=== PATIENT | female | born 1950 | race Caucasian/White ===

== ENCOUNTER 2025-02-09 11:53 | Observation (INO) | payer OTHER, MEDICARE ==
--- OUTSIDE RECORDS SUMMARY | 2025-02-09 11:55 | XMS REPORT | Clinical Summary ---
Author Name Unknown Organization [facility] [place] Address [address] [place] [address] Care Team Providers Care Manager Investigations Name Role Phone Physician, No Primary Care Provider [phone] Allergies Active Allergy Reactions Criticality Noted Date Comments Hydrocortisone 12/30/2017 Sulfa (Sulfonamide Antibiotics) 12/16 Medications Eliquis 5 mg tablet Take 1 tablet (5 mg) by mouth every 12 (twelve) hours. 10/09/2022 Active dilTIAZem (CARDIZEM CD) 180 mg 24 hr capsule Take 1 capsule (180 mg) by mouth daily. 11/19/2023 Active ezetimibe (ZETIA) 10 mg tablet Take 1 tablet (10 mg) by mouth daily. 06/12/2023 Active diazePAM (VALIUM) 2 mg tablet Take 1 tablet (2 mg) by mouth daily as needed for anxiety. 10/24/2021 Active lisinopril (PRINIVIL,ZESTR IL) 20 mg tablet Take 1 tablet (20 mg) by mouth every morning. 12/21/2021 Active Active Problems Problem Noted Date Diagnosed Date Tachycardia 11/28/2023 Coronary arteriosclerosis 11/28/2023 Palpitations 11/28/2023 High troponin I level 11/28/2023 Hypertension 12/31/2017 Urinary tract infection 12/31/2017 Hyperkalemia 12/31/2017 Supraventricular tachycardia 11/16/2017 Surgical History Surgery Date Site/Laterality Comments TOTAL HIP ARTHROPLASTY 06/18/2009 - 06/17/2010 Left CHOLECYSTECTOMY 06/18/2016 - 06/17/2017 Medical History Medical History Date Comments Supraventricular tachycardia 11/2017 Breast cancer 2000 Arrhythmia Hypertension Social History Tobacco Use Types Packs/Day Years Used Date Smoking Tobacco: Never Smokeless Tobacco: Never Alcohol Use Standard Drinks/Week Comments Yes 2 (1 standard drink = 0.6 oz pur e alcohol) Social Comments Unknown Sex and Gender Information Value Date Recorded Sex Assigned at Not on file Legal Sex Female 4:10 PM CDT Gender Identity Not on file Sexual Orientation Not on file Obstetrics History Plan of Treatment Health Maintenance Due Date Last Done Comments COVID-19 Vaccine (6 - 2023-2 5 season) 2024 05/24/2021, 12/22/2020, 12/07/2020, Additional history exists Influenza Vaccine (#1) 2025 , 03/18/2021, 03/19/2020, Additional history exists Pneumococcal Vaccine: 50+ Years Completed 01/20/2016, 11/04/2015, 06/18/1999 Insurance AARP-SECONDARY ONLY MEDICARE PART A AND B AARP-SECONDARY ONLY AARP-SECONDARY ONLY MEDICARE PART A AND B Advance Directives * Full Code (Latest Code Status on File) Date Activated Date Inactivated Comments 11/28/2023 12:13 AM 11/28/2023 11:22 AM * Full Code Date Activated Date Inactivated Comments 12/30/2017 10:23 PM 01/01/2018 5:45 PM Care Teams Manager Investigations Relationship Specialty Start Date End Date Physician, No PCP - General 12/30/17
[2025-02-09] MEDS ORDERED: METOPROLOL TARTRATE 5 MG/5 ML INJ IV ONE (12:16)
[2025-02-09 12:29] LABS: Absolute Lymphocytes (CBC) 1.8 K/uL (0.7-4.9); Hematocrit 38.0 % (36.0-45.0); Hemoglobin 12.1 g/dL (12.0-15.0); MCH 23.7 pg (27.0-35.0); MCHC 31.8 g/dL (32.0-36.0); MCV 74.5 fL (80-100); MPV 8.8 fL (7.6-11.3); Nucleated RBC Absolute Count 0.0 (0-0); Nucleated Red Blood Cells % 0.1 % (0-0); RBC Red Blood Cell Count 5.10 M/uL (3.86-4.86); White Blood Count 8.80 thou/uL (4.3-10.9)
[2025-02-09 12:50] LABS: Potassium 3.5 mEq/L (3.5-5.1)
[2025-02-09 13:01] LABS: ALT/SGPT 37.0 U/L (13-56); AST/SGOT 15.0 U/L (15-37); Albumin 3.5 g/dL (3.4-5.0); Albumin/Globulin Ratio 1.3 (1.1-1.8); Alkaline Phosphatase 69.0 U/L (45-117); Anion Gap 11.5 mEq/L (5.0-15.0); BUN Blood Urea Nitrogen 15.0 mg/dL (7-18); Bilirubin Indirect, Calculated 0.3 mg/dL (0.2-0.8); Globulin 2.7 g/dL (2.3-3.5); Glucose Level 104.0 mg/dL (74-106); Magnesium 2.0 mg/dL (1.6-2.4); Troponin High Sensitivity 13.3 pg/mL (<58.9)
--- NOTE | 2025-02-09 13:12 | ER ---
Nurse's Notes [facility] Name: Halley Barajas Age: 74 yrs Sex: Female : 1950 Arrival Date: 02/09/2025 Time: 11:53 Bed 7 Private MD: Diagnosis: Unspecified atrial flutter;Palpitations Presentation: 02/09 12:10 Chief complaint: EMS states: TONED OUT TO CARDIOLOGY OFFICE DUE TO PATIENT BEING cm10 TACHYCARDIC. EMS REPORTS THAT PTS HEART RATE WAS 190 AND RECEIVED ADENOSINE 12MG IVP AND BROUGHT HEART RATE DOWN TO 150S. PT DENIES ANY CHEST PAIN. PT REPORTS THAT SHE HAS HAD INTERMITTENT SHORTNESS OF BREATH. Coronavirus screen: Client denies travel out of the [place] in the last 14 days. Ebola Screen: Patient denies travel to an Ebola-affected area in the 21 days before illness onset. Initial Sepsis Screen: Does the patient meet any 2 criteria? No. Patient's initial sepsis screen is negative. Does the patient have a suspected source of infection? No. Patient's initial sepsis screen is negative. Risk Assessment: Do you want to hurt yourself or someone else? Patient reports no desire to harm self or others. Onset of symptoms was February 09, 2025. Care prior to arrival: Medication(s) given: Adenosine, 12 mg, x 1, Normal saline infusion, 300Ml IV initiated. 20 GA, 22 GA, in the left in the right antecubital area, forearm. 12:10 Method Of Arrival: EMS: [facility] cm10 12:10 Acuity: ROBE 2 cm10 Triage Assessment: 12:15 General: Appears in no apparent distress. comfortable, Behavior is calm, cooperative. cm10 Pain: Denies pain. Neuro: No deficits noted. Level of Consciousness is awake, alert, obeys commands, Oriented to person, place, time, situation, Appropriate for age. Cardiovascular: Patient's skin is warm and dry. Rhythm is atrial flutter. Respiratory: No deficits noted. Airway is patent Respiratory effort is even, unlabored, Respiratory pattern is regular, symmetrical. Musculoskeletal: Circulation, motion, and sensation intact. Range of motion: intact in all extremities. Historical: - Allergies: 12:12 Sulfa (Sulfonamide Antibiotics); cm10 12:12 Steroids; cm10 - Home Meds: 12:12 Lisinopril Oral [Active]; cm10 - PMHx: 12:12 Atrial fibrillation; cm10 - Immunization history:: Adult Immunizations up to date. - Infectious Disease History:: Denies. - Social history:: Smoking status: Patient denies any tobacco usage or history of. Screenin:20 [facility] ED Fall Risk Assessment (Adult) History of falling in the last 3 months, cm10 including since admission No falls in past 3 months (0 pts) Confusion or Disorientation No (0 pts) Intoxicated or Sedated No (0 pts) Impaired Gait No (0 pts) Mobility Assist Device Used No (0 pt) Altered Elimination No (0 pt) Score/Fall Risk Level 0 - 2 = Low Risk Oriented to surroundings, Maintained a safe environment, Hourly rounding (assess needs \T\ fall precautionary measures) done. Abuse screen: Denies threats or abuse. Denies injuries from another. Nutritional screening: No deficits noted. Tuberculosis screening: No symptoms or risk factors identified. Assessment: 13:58 Reassessment: Patient appears in no apparent distress at this time. Patient and/or cm10 family updated on plan of care and expected duration. Pain level reassessed. Patient is alert, oriented x 3, equal unlabored respirations, skin warm/dry/pink. 15:45 Reassessment: Patient appears in no apparent distress at this time. Patient and/or cm10 family updated on plan of care and expected duration. Pain level reassessed. Patient is alert, oriented x 3, equal unlabored respirations, skin warm/dry/pink. Vital Signs: 12:10 BP 132 / 88; Pulse 154; Resp 18; Temp 98.5(O); Pulse Ox 99% on R/A; Weight 68.49 kg; cm10 Height 5 ft. 4 in. ; Pain 0/10; 12:28 Pulse 91; cm10 12:45 BP 129 / 76; Pulse 109; Resp 15; Pulse Ox 96% on R/A; cm10 13:00 BP 147 / 103; Pulse 107; Resp 15; Pulse Ox 97% ; cm10 14:02 BP 132 / 87; Pulse 86; Resp 15; Pulse Ox 100% on R/A; cm10 15:00 BP 134 / 77; Pulse 104; Resp 14; Pulse Ox 99% on R/A; jb4 15:30 BP 124 / 76; Pulse 65; Resp 15; Pulse Ox 99% ; jb4 16:00 BP 120 / 66; Pulse 65; Resp 15; Pulse Ox 98% on R/A; jb4 12:10 Body Mass Index 25.92 (68.49 kg, 162.56 cm) cm10 12:10 Pain Scale: Adult cm10 ED Course: 11:59 Patient arrived in ED. cm10 12:01 Otf Garcia DO is Attending Physician. ms3 12:10 Yeimi Bhatia, MANNY is Primary Nurse. cm10 12:12 Triage completed. cm10 12:13 Arm band placed on right wrist. Patient placed in an exam room, on a stretcher, on cm10 cryptologist, on pulse oximetry. 12:14 Maintain EMS IV. Dressing intact. Good blood return noted. Site clean \T\ dry. Gauge \T\ cm 10 site: 22g right forearm. Flushed with 10 mL NS. 12:14 EKG done, by ED staff, reviewed by Otf Garcia DO. Maintain EMS IV. Dressing intact. cm10 Good blood return noted. Site clean \T\ dry. Gauge \T\ site: 20g left ac. Flushed with 10 mL NS. 12:20 Patient has correct armband on for positive identification. Bed in low position. Call cm10 light in reach. Side rails up X2. Client placed on continuous cardiac and pulse oximetry monitoring. NIBP monitoring applied. bass viol repairer on. 12:45 XRAY Chest (1 view) In Process Unspecified. EDMS 13:11 Silver Martínez MD is Hospitalizing Provider. ms3 16:20 Provided Education on: Need for admit. cm10 16:20 No provider procedures requiring assistance completed. IV discontinued, intact, cm10 bleeding controlled, No redness/swelling at site. Pressure dressing applied. Administered Medications: 12:19 Drug: Metoprolol IVP 5 mg IVP every 5 minutes; Hold for SBP < 100 or HR < 60. x3 Route: cm10 IVP; Site: left antecubital; 12:30 Follow up: Response: No adverse reaction; Cardiac rhythm changed cm10 13:25 Drug: Sotalol PO 80 mg PO once Route: PO; cm10 14:09 Follow up: Response: No adverse reaction cm10 14:08 Drug: Eliquis PO 5 mg PO once Route: PO; cm10 16:21 Follow up: Response: No adverse reaction cm10 Medication: 16:20 VIS not applicable for this client. cm10 Outcome: 13:12 Decision to Hospitalize by Provider. ms3 16:20 Admitted to Med/surg accompanied by nurse, via wheelchair, room 206, cm10 16:20 Condition: stable 16:20 Instructed on the need for admit, 16:21 Patient left the ED. cm10 Signatures: Dispatcher [employer] EDCharlie Barreto, RN RN jb4 Otf Garcia DO DO ms3 Yeimi Bhatia, RN RN cm10
--- NOTE | 2025-02-09 13:12 | EDPHYS ---
Physician Documentation [facility] Name: Halley Barajas Age: 74 yrs Sex: Female : 1950 Arrival Date: 02/09/2025 Time: 11:53 Bed 7 Private MD: ED Physician Otf Garcia HPI: 02/09 12:32 This 74 yrs old Female presents to ER via EMS with complaints of Fast heart rate. ms3 12:32 74-year-old female with past medical history of atrial fibrillation presents to the [facility] emergency department from Dr. Valero's office for tachycardia. Patient given 12 mg of adenosine in his office that revealed atrial fibrillation/flutter. On arrival patient states she is having palpitations. She denies chest pain or shortness of breath. Historical: - Allergies: 12:12 Sulfa (Sulfonamide Antibiotics); cm10 12:12 Steroids; cm10 - Home Meds: 12:12 Lisinopril Oral [Active]; cm10 - PMHx: 12:12 Atrial fibrillation; cm10 - Immunization history:: Adult Immunizations up to date. - Infectious Disease History:: Denies. - Social history:: Smoking status: Patient denies any tobacco usage or history of. ROS: 12:32 Constitutional: Negative for fever, and chills. Respiratory: Negative for shortness of ms3 breath, cough, wheezing, and pleuritic chest pain, Abdomen/GI: Negative for abdominal pain, nausea, vomiting, diarrhea, and constipation, 12:32 MS/Extremity: Negative for injury and deformity, Skin: Negative for injury, rash, and discoloration, 12:32 Cardiovascular: Positive for palpitations, Exam: 12:05 ECG was reviewed by the Attending Physician. ms3 12:32 Constitutional: This is a well developed, well nourished patient who is awake, alert, ms3 and in no acute distress. Respiratory: Lungs have equal breath sounds bilaterally, clear to auscultation and percussion. No rales, rhonchi or wheezes noted. No increased work of breathing, no retractions or nasal flaring. Abdomen/GI: Soft, non-tender, with normal bowel sounds. No distension or tympany. No guarding or rebound. No evidence of tenderness throughout. Skin: Warm, dry with normal turgor. Normal color with no rashes, no lesions, and no evidence of cellulitis. MS/ Extremity: Pulses equal, no cyanosis. Neurovascular intact. Full, normal range of motion. 12:32 Cardiovascular: Rate: tachycardic, Rhythm: regular, Pulses: no pulse deficits are appreciated, Heart sounds: normal, normal S1and S2, 12:35 ECG was reviewed by the Attending Physician. ms3 Vital Signs: 12:10 BP 132 / 88; Pulse 154; Resp 18; Temp 98.5(O); Pulse Ox 99% on R/A; Weight 68.49 kg; cm10 Height 5 ft. 4 in. ; Pain 0/10; 12:28 Pulse 91; cm10 12:45 BP 129 / 76; Pulse 109; Resp 15; Pulse Ox 96% on R/A; cm10 13:00 BP 147 / 103; Pulse 107; Resp 15; Pulse Ox 97% ; cm10 14:02 BP 132 / 87; Pulse 86; Resp 15; Pulse Ox 100% on R/A; cm10 15:00 BP 134 / 77; Pulse 104; Resp 14; Pulse Ox 99% on R/A; jb4 15:30 BP 124 / 76; Pulse 65; Resp 15; Pulse Ox 99% ; jb4 16:00 BP 120 / 66; Pulse 65; Resp 15; Pulse Ox 98% on R/A; jb4 12:10 Body Mass Index 25.92 (68.49 kg, 162.56 cm) cm10 12:10 Pain Scale: Adult cm10 MDM: 12:01 Medical Screening Exam initiated ms3 12:05 Consideration of Admission/Observation Patient was admitted/placed on observation. ms3 12:32 Differential diagnosis: arrythmia, Electrolyte abnormality. ms3 13:12 Data reviewed: vital signs, nurses notes, lab test result(s), EKG, radiologic studies, ms3 and as a result, I will. Management of patient was discussed with the following: Hospitalist: . Facing Baster: Dr Valero- Would like Sotalol 80 mg PO BID and Eliquis 5 mg PO BID. I considered the following discharge prescriptions or medication management in the emergency department Medications were administered in the Emergency Department. See MAR. Independent interpretation of the following test(s) in the Emergency Department EKG: See my EKG interpretation above X-Ray: My interpretation is Chest x-ray image reviewed by me does not reveal pleural effusion, pulmonary edema.. Counseling: I had a detailed discussion with the patient and/or guardian regarding the historical points, exam findings, and any diagnostic results supporting the discharge/admit diagnosis, lab results, radiology results, the need for further work-up and treatment in the hospital. ED course: Discussed necessity for admission with the patient and her . They understand and agree with plan. All questions were answered.. 02/09 12:02 Order name: Basic Metabolic Panel [facility] 02/09 12:02 Order name: CBC with Diff; Complete Time: 13:03 ms3 02/09 12:02 Order name: LFT's ms3 02/09 12:02 Order name: Magnesium ms3 02/09 12:02 Order name: NT PRO-BNP ms3 02/09 12:02 Order name: Troponin HS ms 02/09 14:29 Order name: Lipid Profile [facility] 02/09 14:29 Order name: Phosphorus [facility] 02/09 14:29 Order name: T4 Free [facility] 02/09 14:29 Order name: Thyroid Stimulating Hormone [facility] 02/09 14:29 Order name: Basic Metabolic Panel [facility] 02/09 14:29 Order name: Basic Metabolic Panel [facility] 02/09 14:29 Order name: CBC with Automated Diff [facility] 02/09 14:29 Order name: CBC with Automated Diff [facility] 02/09 14:29 Order name: Troponin High Sensitivity [facility] 02/09 14:29 Order name: Troponin High Sensitivity [facility] 02/09 14:29 Order name: Troponin High Sensitivity [facility] 02/09 12:02 Order name: XRAY Chest (1 view) [facility] 02/09 14:42 Order name: Echo with Doppler [facility] 02/09 14:20 Order name: CONS Physician Consult [facility] 02/09 12:02 Order name: Cardiac monitoring; Complete Time: 12:14 ms3 02/09 12:02 Order name: EKG - Nurse/Tech; Complete Time: 12:14 ms3 02/09 12:02 Order name: IV Saline Lock; Complete Time: 12:14 ms3 02/09 12:02 Order name: Labs collected and sent; Complete Time: 12:14 ms3 02/09 12:02 Order name: O2 Per Protocol; Complete Time: 12:14 ms3 02/09 12:02 Order name: O2 Sat Monitoring; Complete Time: 12:14 ms3 EC:05 Rate is 147 beats/min. Rhythm is irregularly irregular. Left axis deviation noted. QRS ms3 interval is normal. Clinical impression: Atrial Fibrillation and with RVR. Interpreted by me. Reviewed by me. 12:35 Rate is 95 beats/min. Rhythm is irregularly irregular. Left axis deviation noted. ms3 Clinical impression: Atrial Flutter. Interpreted by me. Reviewed by me. Administered Medications: 12:19 Drug: Metoprolol IVP 5 mg IVP every 5 minutes; Hold for SBP < 100 or HR < 60. x3 Route: cm10 IVP; Site: left antecubital; 12:30 Follow up: Response: No adverse reaction; Cardiac rhythm changed cm10 13:25 Drug: Sotalol PO 80 mg PO once Route: PO; cm10 14:09 Follow up: Response: No adverse reaction cm10 14:08 Drug: Eliquis PO 5 mg PO once Route: PO; cm10 16:21 Follow up: Response: No adverse reaction cm10 Disposition Summary: 02/09/25 13:12 Hospitalization Ordered Notes: Hospitalization Status: Observation ms3 Provider: Silver Martínez ms3 Location: Telemetry/MedSurg (observation) ms3 Condition: Stable ms3 Problem: new ms3 Symptoms: are unchanged ms3 Bed/Room Type: Standard ms3 Room Assignment: 206(02/09/25 15:33) bd Diagnosis - Unspecified atrial flutter ms3 - Palpitations ms3 Forms: - Medication Reconciliation Form ms3 - SBAR form ms3 - Leadership Thank You Letter ms3 Critical care time excluding procedures: 13:15 Critical care time: Bedside Care: 30 minutes, Consultation: 5 minutes, Family ms3 Intervention: 5 minutes. Total time: 40 minutes Signatures: Dispatcher [employer] EDMS Marilu Bolden Marcus, DO DO ms3 Yeimi Bhatia RN RN cm10 Corrections: (The following items were deleted from the chart) 12:02 12:02 BASIC METABOLIC PANEL+C.LAB.BRZ ordered. EDMS EDMS 12:02 12:02 CBC+H.LAB.BRZ ordered. EDMS EDMS 12:02 12:02 HEPATIC FUNCTION+C.LAB.BRZ ordered. EDMS EDMS 12:02 12:02 MAGNESIUM+C.LAB.BRZ ordered. EDMS EDMS 12:02 12:02 PROBNP+C.LAB.BRZ ordered. EDMS EDMS 12:02 12:02 Troponin High Sensitivity+C.LAB.BRZ ordered. EDMS EDMS 12:03 12:02 Chest Single View+RAD.RAD.BRZ ordered. EDMS EDMS 12:34 12:32 Constitutional: This is a well developed, well nourished patient who is awake, ms3 alert, and in no acute distress. Respiratory: Lungs have equal breath sounds bilaterally, clear to auscultation and percussion. No rales, rhonchi or wheezes noted. No increased work of breathing, no retractions or nasal flaring. Abdomen/GI: Soft, non-tender, with normal bowel sounds. No distension or tympany. No guarding or rebound. No evidence of tenderness throughout. ms3 14:03 13:12 Management of patient was discussed with the following: Hospitalist: . ms3 Facing Baster: Dr Valero. ms3 15:33 13:12 ms3 bd
[2025-02-09] MEDS ORDERED: SOTALOL HCL 80 MG TAB ONE (13:18)
[2025-02-09] MEDS ORDERED: APIXABAN 5 MG TABLET ONE (13:18)
--- NOTE | 2025-02-09 13:37 | RAD REPORT ---
EXAMINATION: ONE VIEW CHEST XR CLINICAL INDICATION: Female, 74 years old.,tachycardia TECHNIQUE: Frontal chest projection is submitted. Examination is limited by patient positioning and t echnique. COMPARISON: No prior exam. FINDINGS: The lungs are well inflated. Patchy ovoid opacity at the right lung base. Questionable hazy opacifica tion in the retrocardiac space although superimposition of soft tissues somewhat limits evaluation. No pneumothorax or sizable effusion. The heart is normal in size. Mediastinal contours are unremarkab le. Surgical clips in the left axilla. IMPRESSION: Patchy ovoid opacity in the right lung base and questionable hazy opacification of the retrocardiac s pace. Findings are concerning for acute pneumonitis, possibly multifocal.
[2025-02-09] MEDS ORDERED: HYDROCODONE/APAP 5/325 MG TAB PO PRN (14:17)
[2025-02-09] MEDS ORDERED: ACETAMINOPHEN 325 MG TABLET PO PRN (14:17)
[2025-02-09] MEDS ORDERED: ONDANSETRON 4 MG/2 ML VIAL IV PRN (14:26)
--- NOTE | 2025-02-09 14:41 | P.HP ---
Certification for Inpatient Patient admitted to: Observation With expected LOS: <2 Midnights Patient will require the following post-hospital care: None Practitioner: I am a practitioner with admitting privileges, knowledge of patient current condition, hospital course, and medical plan of care. Services: Services provided to patient in accordance with Admission requirements found in Title 42 Section 412.3 of the Code of Federal Regulations <Ashley Peoples - Last Filed: 02/09/25 21:09> Patient History Date of Service: 02/09/25 Reason for admission: Palpitations History of Present Illness: Patient is a 74-year-old female with a past medical history significant for atrial fibrillation, anxiety disorder, hypertension, hyperlipidemia who presents with complaint of palpitation that has been ongoing for the past 1 week. Patient followed up with his semiconductor manufacturing technician today and was instructed to go to the ER for further management. Patient reported associated signs and symptoms of shortness of breath with exertion. Patient denies any other signs and symptoms. Symptoms are aggravated or relieved by nothing. Patient decided to present to the hospital as directed by her semiconductor manufacturing technician. - Past Medical/Surgical History -: Afib -: HTN -: Anxiety Disorder -: Cardiac ablation - Family History Family History: Reviewed- Non-Contributory - Social History Smoking Status: Never smoker Smoking therapy provided: No Patient receptive to therapy: No Alcohol use: No CD- Drugs: No Caffeine use: No Place of Residence: Home <Ashley Peoples - Last Filed: 02/09/25 21:09> Date of Service: 02/09/25 <Silver Martínez - Last Filed: 02/10/25 07:36> Allergies Sulfa (Sulfonamide Antibiotics) Allergy (Verified 02/09/25 17:05) Itching steriods Adverse Reaction (Uncoded 02/09/25 17:05) Shortness of breath Home Medications: Aspirin [Aspirin EC 81 MG] 81 mg PO DAILY 02/09/25 Ergocalciferol (Vitamin D2) [Vitamin D 50,000 Unit Cap] 1 tab PO Q7H 02/09/25 Evolocumab [Repatha Sureclick] 1 SQ SEECOM 02/09/25 Ezetimibe 10 mg PO DAILY 02/09/25 Lisinopril [Zestril] 20 mg PO DAILY 02/09/25 Nitrofurantoin Macrocrystal [Nitrofurantoin] 100 mg PO BID 02/09/25 diazePAM [Diazepam] 2 mg PO BID PRN 02/09/25 Review of Systems General: Unremarkable Eyes: Unremarkable ENT: Unremarkable Respiratory: SOB with Excertion Cardiovascular: Palpitations Gastrointestinal: Unremarkable Genitourinary: Unremarkable Musculoskeletal: Unremarkable Integumentary: Unremarkable Neurological: Unremarkable Lymphatics: Unremarkable <Ashley Peoples - Last Filed: 02/09/25 21:09> Physical Examination - Physical Exam General: Alert, In no apparent distress, Oriented x3, Cooperative HEENT: Atraumatic, PERRLA, Mucous membr. moist/pink, EOMI, Sclerae nonicteric Neck: Supple, 2+ carotid pulse no bruit, No LAD, Without JVD or thyroid abnormality Respiratory: Clear to auscultation bilaterally, Normal air movement Cardiovascular: No edema, Normal S1 S2, Irregular heart rate/rhythm Capillary refill: <2 Seconds Gastrointestinal: Normal bowel sounds, No tenderness Musculoskeletal: No clubbing, No tenderness Integumentary: No rashes, No breakdown Neurological: Normal speech, Normal tone, Normal affect Lymphatics: No axilla or inguinal lymphadenopathy - Studies Laboratory Data (last 24 hrs) 02/09/25 02/09/25 12:18 12:18 WBC 8.80 Hgb 12.1 Hct 38.0 Plt Count 255 Sodium 140 Potassium 3.5 BUN 15 Creatinine 0.83 Glucose 104 Magnesium 2.0 Total Bilirubin 0.5 AST 15 ALT 37 Alkaline Phosphatase 69 <Ashley Peoples - Last Filed: 02/09/25 21:09> - Studies Laboratory Data (last 24 hrs) 02/09/25 02/09/25 12:18 12:18 WBC 8.80 Hgb 12.1 Hct 38.0 Plt Count 255 Sodium 140 Potassium 3.5 BUN 15 Creatinine 0.83 Glucose 104 Magnesium 2.0 Total Bilirubin 0.5 AST 15 ALT 37 Alkaline Phosphatase 69 <Silver Martínez - Last Filed: 02/10/25 07:36> Assessment and Plan - Plan Atrial flutter. History of atrial fibrillation. Palpitations --Cardiology consulted. Recommendations appreciated --Cardiology recommended placing patient on sotalol and Eliquis. --Echocardiogram pending to assess cardiac structures of concerns. --Telemetry to monitor for any significant arrhythmia. Anxiety disorder --Continue home medication. Hypertension --Stable. --Continue home medications Hyperlipidemia --Continue home medication. CKD 2. --Stable. --Will continue to monitor renal functions. DVT prophylaxis with Eliquis. Discharge Plan: Home Plan to discharge in: 48 Hours - Advance Directives Does patient have a Living Will: No Does patient have a Durable POA for Healthcare: No - Code Status/Comfort Care Code Status Assessed: Yes Physician Review: Patient Assessed, Agree with Above Assessment and Plan Critical Care: No <Ashley Peoples - Last Filed: 02/09/25 21:09> Date of Service: 02/09/25 Chart has been reviewed. Events of the last 24 hours have been noted. Case discussed with GUMARO. I performed a substantial part of the MDM during this patient's care today. I personally made or approved the documented management plan and acknowledge its risk of complications. I agree with the findings and documentation provided in the GUMARO's notes Continue with sotalol and continue with anticoagulation. Plan to discharge after the third dose. Continue monitoring on telemetry over the next 24 to 48 hours. <Silver Martínez - Last Filed: 02/10/25 07:36>
[2025-02-09 16:48] VITALS: BMI 25.9
[2025-02-09 17:59] LABS: NT PRO-BNP 518.0 pg/mL (<450)
[2025-02-09] MEDS: SOTALOL HCL 80 MG TAB PO SCH (18:30)
[2025-02-09 20:02] VITALS: O2SAT 98
[2025-02-09] MEDS ORDERED: DIAZEPAM 2 MG TABLET PO PRN (20:58)
[2025-02-09] MEDS: NITROFURAN MACRO 50 MG CAP PO SCH (21:00)
[2025-02-09] MEDS: APIXABAN 5 MG TABLET PO SCH (21:15)
[2025-02-10 05:03] LABS: Absolute Lymphocytes (CBC) 2.2 K/uL (0.7-4.9); Hematocrit 33.5 % (36.0-45.0); Hemoglobin 10.8 g/dL (12.0-15.0); MCH 24.0 pg (27.0-35.0); MCHC 32.1 g/dL (32.0-36.0); MCV 74.8 fL (80-100); MPV 9.3 fL (7.6-11.3); Nucleated RBC Absolute Count 0.0 (0-0); Nucleated Red Blood Cells % 0.0 % (0-0); RBC Red Blood Cell Count 4.48 M/uL (3.86-4.86); White Blood Count 7.90 thou/uL (4.3-10.9)
[2025-02-10 05:16] LABS: Anion Gap 11.7 mEq/L (5.0-15.0); BUN Blood Urea Nitrogen 14.0 mg/dL (7-18); Glucose Level 101.0 mg/dL (74-106); HDL Cholesterol 41.0 mg/dL (40-60); LDL Cholesterol, Calculated 24.0 mg/dL (<130); LDL Cholesterol,Calc NonReport 24.0; Potassium 3.7 mEq/L (3.5-5.1); Thyroid Stimulating Hormone 1.22 uIU/mL (0.358-3.740); Troponin High Sensitivity 23.0 pg/mL (<58.9)
[2025-02-10] MEDS: POTASSIUM CL SA 10 MEQ TAB PO ONE (06:22)
[2025-02-10] MEDS: NITROFURAN MACRO 100 MG CAP PO SCH (08:10)
[2025-02-10] MEDS: EZETIMIBE 10 MG TAB PO SCH (08:10)
[2025-02-10] MEDS ORDERED: ASPIRIN EC 81 MG TAB PO SCH (09:00)
[2025-02-10 10:43] VITALS: BP 133/73; TEMP 98.2
--- NOTE | 2025-02-10 12:09 | P.CNS ---
Date of Consult: 02/10/25 Chief Complaint: Palpitations History of Present Illness: Patient with PMH of AF s/p watchman, HLD, presented with AF RVR, started on Sotalol during hospital stay and chemically converted to sinus rhythm, denies any other cardiac symptoms. Allergies Sulfa (Sulfonamide Antibiotics) Allergy (Verified 02/09/25 17:05) Itching steriods Adverse Reaction (Uncoded 02/09/25 17:05) Shortness of breath Home medications list reviewed: Yes Home Medications: Aspirin [Aspirin EC 81 MG] 81 mg PO DAILY 02/09/25 Ergocalciferol (Vitamin D2) [Vitamin D 50,000 Unit Cap] 1 tab PO Q7H 02/09/25 Evolocumab [Repatha Sureclick] 1 SQ SEECOM 02/09/25 Ezetimibe 10 mg PO DAILY 02/09/25 Lisinopril [Zestril] 20 mg PO DAILY 02/09/25 diazePAM [Diazepam] 2 mg PO BID PRN 02/09/25 Apixaban [Eliquis] 5 mg PO BID 14 Days #28 tab 02/10/25 Sotalol HCl [Betapace*] 80 mg PO BID 6AM 6PM #60 tab 02/10/25 - Past Medical/Surgical History Diabetic: No -: Afib -: HTN -: Anxiety Disorder -: Cardiac ablation -: L breast CA -: cholecystectomy - Social History Alcohol use: No CD- Drugs: No Caffeine use: No Place of Residence: Home Review of Systems 10-point ROS is otherwise unremarkable Physical Examination Temp Pulse Resp BP Pulse Ox 98.2 F 62 17 133/73 100 02/10/25 08:00 02/10/25 08:00 02/10/25 08:00 02/10/25 08:00 02/10/25 08:00 General: Alert, In no apparent distress HEENT: Atraumatic, PERRLA, Mucous membr. moist/pink, EOMI, Sclerae nonicteric Neck: Supple, 2+ carotid pulse no bruit, No LAD, Without JVD or thyroid abnormality Respiratory: Clear to auscultation bilaterally, Normal air movement Cardiovascular: Regular rate/rhythm, Normal S1 S2 Gastrointestinal: Normal bowel sounds, No tenderness Musculoskeletal: No tenderness Integumentary: No rashes Neurological: Normal gait, Normal speech, Normal tone, Normal affect Lymphatics: No axilla or inguinal lymphadenopathy Laboratory Data (last 24 hrs) 02/09/25 02/09/25 12:18 12:18 WBC 8.80 Hgb 12.1 Hct 38.0 Plt Count 255 Sodium 140 Potassium 3.5 BUN 15 Creatinine 0.83 Glucose 104 Magnesium 2.0 Total Bilirubin 0.5 AST 15 ALT 37 Alkaline Phosphatase 69 - Problems (1) Atrial fibrillation Current Visit: Yes Status: Acute Plan: converted to sinus rhythm after starting sotalol, repeated ekg show normal QTc continue Sotalol 80 mg po BID Continue Eliquis 5 mg po BID for 14 days then switch to ASA 81 mg daily (patient with watchman) continue to follow up with cardiology
--- NOTE | 2025-02-10 15:40 | P.DS ---
Admission Date: 02/09/25 Discharge Date: 02/10/25 Disposition: ROUTINE DISCHARGE Discharge Condition: GOOD Reason for Admission: Palpitations Brief History of Present Illness: Patient is a 74-year-old female with a past medical history significant for atrial fibrillation, anxiety disorder, hypertension, hyperlipidemia who presents with complaint of palpitation that has been ongoing for the past 1 week. Patient followed up with his bronc breaker today and was instructed to go to the ER for further management. Patient reported associated signs and symptoms of shortness of breath with exertion. Patient denies any other signs and symptoms. Symptoms are aggravated or relieved by nothing. Patient decided to present to the hospital as directed by her bronc breaker. Hospital Course: Problem list Atrial flutter. History of atrial fibrillation. Palpitations Anxiety disorder Hypertension Hyperlipidemia Patient presented to her cardiology clinic in atrial flutter. She was given medications at the clinic before being sent to the emergency department for evaluation/admission. In the ER she was started on sotalol and Eliquis. Overnight she converted to normal sinus rhythm. EKG was completed after third dose of sotalol which showed QTc is not prolonged. Cardiology recommends continuing with sotalol 80 mg twice daily and Eliquis 5 mg twice daily for 2 weeks. Patient does have a known history of a watchman placement, she will continue the Eliquis twice daily for 2 weeks and then go back to taking aspirin daily. Other home medication should be continued as previously prescribed Follow-up with cardiology in 1 week Vital Signs/Physical Exam: Temp Pulse Resp BP Pulse Ox 98.2 F 62 17 133/73 100 02/10/25 08:00 02/10/25 08:00 02/10/25 08:00 02/10/25 08:00 02/10/25 08:00 General: Alert, In no apparent distress, Oriented x3 HEENT: Atraumatic, PERRLA Neck: Supple, JVD not distended Respiratory: Clear to auscultation bilaterally, Normal air movement Cardiovascular: Regular rate/rhythm, Normal S1 S2 Gastrointestinal: Normal bowel sounds, No tenderness Musculoskeletal: No tenderness Integumentary: No rashes Neurological: Normal speech, Normal affect Laboratory Data at Discharge: WBC 7.90 thou/uL (4.3-10.9) 02/10/25 04:29 Hgb 10.8 g/dL (12.0-15.0) L D 02/10/25 04:29 Hct 33.5 % (36.0-45.0) L 02/10/25 04:29 Plt Count 225 thou/uL (152-406) 02/10/25 04:29 Sodium 141 mEq/L (136-145) 02/10/25 04:29 Potassium 3.7 mEq/L (3.5-5.1) 02/10/25 04:29 BUN 14 mg/dL (7-18) 02/10/25 04:29 Creatinine 0.78 mg/dL (0.55-1.02) 02/10/25 04:29 Glucose 101 mg/dL (74-106) 02/10/25 04:29 Phosphorus 3.8 mg/dL (2.5-4.9) 02/10/25 04:29 Magnesium 2.0 mg/dL (1.6-2.4) 02/09/25 12:18 Total Bilirubin 0.5 mg/dL (0.2-1.0) 02/09/25 12:18 AST 15 U/L (15-37) 02/09/25 12:18 ALT 37 U/L (13-56) 02/09/25 12:18 Alkaline Phosphatase 69 U/L (45-117) 02/09/25 12:18 Triglycerides 119 mg/dL (<150) 02/10/25 04:29 Cholesterol 89 mg/dL (<200) 02/10/25 04:29 HDL Cholesterol 41 mg/dL (40-60) 02/10/25 04:29 Cholesterol/HDL Ratio 2.17 02/10/25 04:29 Home Medications: Aspirin [Aspirin EC 81 MG] 81 mg PO DAILY 02/09/25 Ergocalciferol (Vitamin D2) [Vitamin D 50,000 Unit Cap] 1 tab PO Q7H 02/09/25 Evolocumab [Repatha Sureclick] 1 SQ SEECOM 02/09/25 Ezetimibe 10 mg PO DAILY 02/09/25 Lisinopril [Zestril] 20 mg PO DAILY 02/09/25 diazePAM [Diazepam] 2 mg PO BID PRN 02/09/25 Apixaban [Eliquis] 5 mg PO BID 14 Days #28 tab 02/10/25 Sotalol HCl [Betapace*] 80 mg PO BID 6AM 6PM #60 tab 02/10/25 New Medications: Sotalol HCl [Betapace*] 80 mg PO BID 6AM 6PM #60 tab Apixaban [Eliquis] 5 mg PO BID 14 Days #28 tab Physician Discharge Instructions: Patient presented to her cardiology clinic in atrial flutter. She was given medications at the clinic before being sent to the emergency department for evaluation/admission. In the ER she was started on sotalol and Eliquis. Overnight she converted to normal sinus rhythm. EKG was completed after third dose of sotalol which showed QTc is not prolonged. Cardiology recommends continuing with sotalol 80 mg twice daily and Eliquis 5 mg twice daily for 2 weeks. Patient does have a known history of a watchman placement, she will continue the Eliquis twice daily for 2 weeks and then go back to taking aspirin daily. Other home medication should be continued as previously prescribed Follow-up with cardiology in 1 week Diet: Regular Activity: Ad duarte Followup: Beto Gregory MD [ACTIVE - CAN ADMIT] - 1 Week NONE,NONE [Primary Care Provider] - Time spent managing pt's care (in minutes): 45
== END 2025-02-10 12:22 | disposition home or self-care (01) ==
LOC: ER 11:53 → ERHOLD 14:13 → 2ND 15:56
PROVIDERS: ADMIT Hospitalist; ATTEND Hospitalist
DX: I48.92 Unspecified atrial flutter (principal); R00.2 Palpitations; F41.9 Anxiety disorder, unspecified; I10 Essential (primary) hypertension; E78.5 Hyperlipidemia, unspecified; R06.02 Shortness of breath; I48.11 Longstanding persistent atrial fibrillation; N18.2 Chronic kidney disease, stage 2 (mild); Z79.82 Long term (current) use of aspirin; Z88.2 Allergy status to sulfonamides
CPT/HCPCS: 36415; 71045; 80048; 80061; 80076; 83735; 83880; 84100; 84439; 84443; 84484; 85025; 93005; 96374; 99285; G0378